=== PATIENT | male | born 1945 | race Caucasian/White ===

== ENCOUNTER 2017-08-01 08:46 | Inpatient (IN) | payer MEDICARE, OTHER ==
[2017-08-01] MEDS ORDERED: METHYLPREDNISOLONE PF 125MG/VIAL IVP ONE (08:55)
[2017-08-01] MEDS ORDERED: IPRATROPIUM/ALBUTEROL (0.5MG/3MG) NEB INH ONE (08:55)
--- NOTE | 2017-08-01 09:02 | Emergency Department Record ---
History of Present Illness - General Chief Complaint: Cough Stated Complaint: COUGH,FEVER,FLU LIKE Time Seen by Provider: 08/01/17 08:54 Source: Patient Mode of Arrival: Ambulatory Limitations: No limitations - History of Present Illness Initial Comments: 72 yo male presents with shortness of breath. The onset of cough, congestion, dyspnea with activity started last night. He is unaware of any fever. He has a productive cough. He has a history of asthma. He is a former smoker. He denies any chest pain or edema. He states he did have a Flu shot this year. NO other nausea, vomiting, diarrhea. No rash. PCP is at the [facility]. MD Complaint: Cough, Nasal congestion Onset/Timin -: Days(s) Severity: Moderate Quality: Other Consistency: Constant Improves With: Nothing Worsens With: Activity Context: Sick contacts Associated Symptoms: Cough, Nasal congestion Treatments Prior to Arrival: None - Related Data Home Medications Medication Instructions Recorded Confirmed Last Taken Albuterol Sulfate [Proventil Hfa] 1 - 2 puff INH .EVERY 4-6 HOURS PRN 08/01/17 08/01/17 08/01/17 Alprazolam [Xanax] 0.25 mg PO QHS 08/01/17 08/01/17 07/31/17 Aspirin [Aspirin EC] 81 mg PO DAILY 08/01/17 08/01/17 08/01/17 Atorvastatin Calcium 80 mg PO DAILY 08/01/17 08/01/17 07/31/17 Escitalopram Oxalate [Lexapro] 20 mg PO DAILY 08/01/17 08/01/17 08/01/17 Fish Oil/Dha/Epa [Fish Oil 1,200 1 each PO DAILY 08/01/17 08/01/17 08/01/17 mg Fish Oil] Ginkgo Biloba [place] Extract [Ginkgo 60 mg PO DAILY 08/01/17 08/01/17 08/01/17 Biloba] Mometasone Furoate [Asmanex] 220 mcg IH BID 08/01/17 08/01/17 08/01/17 Multivitamin [Daily Multiple 1 each PO DAILY 08/01/17 08/01/17 08/01/17 Vitamin] Prazosin HCl 1 mg PO QHS 08/01/17 08/01/17 07/31/17 Allergies Allergy/AdvReac Type Severity Reaction Status Date / Time No Known Drug Allergies Allergy Verified 08/01/17 08:58 Travel Screening - Travel/Exposure Within Last 30 Days Have you traveled within the last 30 days?: No Review of Systems Constitutional: Denies: Chills, Fever, Malaise, Weakness Eyes: Denies: Eye discharge ENT: Reports: Congestion. Denies: Throat pain Respiratory: Reports: Cough, Dyspnea, Wheezes. Denies: Hemoptysis, Stridor Cardiovascular: Denies: Chest pain, Palpitations, Syncope Endocrine: Denies: Fatigue Gastrointestinal: Denies: Abdominal pain, Diarrhea, Nausea, Vomiting Genitourinary: Denies: Dysuria, Frequency, Hematuria Musculoskeletal: Denies: Arthralgia, Back pain, Myalgia, Neck pain Skin: Denies: Bruising, Change in color, Rash Neurological: Denies: Confusion, Numbness, Weakness Psychiatric: Denies: Anxiety Hematological/Lymphatic: Denies: Blood Clots, Easy bleeding, Easy bruising, Swollen glands Physical Exam - General General Appearance: Alert, Oriented x3, Cooperative, No acute distress Limitations: No limitations - Head Head exam: Atraumatic, Normal inspection - Eye Eye exam: Normal appearance. negative: Conjunctival injection, Periorbital swelling - ENT ENT exam: Normal exam, Mucous membranes moist, Normal orophraynx Ear exam: Normal external inspection Nasal Exam: Discharge Mouth exam: Normal external inspection Teeth exam: Normal inspection Throat exam: Normal inspection - Neck Neck exam: Normal inspection, Full ROM. negative: Tenderness - Respiratory Respiratory exam: Accessory muscle use, Decreased breath sounds, Prolonged expiratory, Rhonchi, Wheezes. negative: Normal lung sounds bilaterally, Respiratory distress - Cardiovascular Cardiovascular Exam: Tachycardia Peripheral Pulses: 2+: Radial (R), Radial (L) - GI/Abdominal GI/Abdominal exam: Soft. negative: Rebound, Rigid, Tenderness - Rectal Rectal exam: Deferred - exam: Deferred - Extremities Extremities exam: Normal inspection, Full ROM, Normal capillary refill. negative: Tenderness - Back Back exam: Reports: Normal inspection, Full ROM. Denies: Muscle spasm, Rash noted, Tenderness - Neurological Neurological exam: Alert, Normal gait, Oriented X3 - Psychiatric Psychiatric exam: Normal affect, Normal mood - Skin Skin exam: Dry, Intact, Normal color, Warm Course Vital Signs 08/01/17 08:49 Pulse Rate 114 H Respiratory 28 H Rate Blood Pressure 134/94 Pulse Ox 90 L - Reevaluation(s) Reevaluation #1: The patient was 87% on room air initially with improvement to 90's with O2 08/01/17 09:01 08/01/17 10:19 The WBC count is 16 The CMP is negative The Influenza screen is negative The CXR was reviewed. He has a developing pneumonia on the right 08/01/17 11:11 EKG 11:02 Sinus rhythm with PVCs, intervals normal, axis left, LVH, ST NS changes. 08/01/17 11:32 Given the hypoxia, asthma, and right sided pneumonia the patient will be admitted for respiratory care and antibiotics Medical Decision Making - Lab Data Result diagrams: 08/01/17 09:14 08/01/17 09:14 Disposition Disposition: Admit Clinical Impression: Pneumonia Qualifiers: Pneumonia type: due to unspecified organism Laterality: right Lung location: middle lobe of lung Qualified Code(s): J18.1 - Lobar pneumonia, unspecified organism Disposition: Still a Patient at [facility] Decision to Admit: Admit from ER Decision to Admit Date: 08/01/17 Decision to Admit Time: 11:28 Condition: (1) Good Forms: Patient Portal Access Time of Disposition: 11:28 Quality - Quality Measures Quality Measures: N/A - Blood Pressure Screening Does Patient Have Any of the Following: No Blood Pressure Classification: Hypertensive Reading Systolic Measurement: 134 Diastolic Measurement: 94 Screening for High Blood Pressure: < Pre-Hypertensive BP, F/U Documented > [ [id number]] Pre-Hypertensive Follow-up Interventions: Referral to alternative/primary care provider.
[2017-08-01] MEDS ORDERED: ALBUTEROL SULFATE (0.083%) 2.5 MG/3 ML NEB INH ONE (09:25)
[2017-08-01 09:28] LABS: BLOOD UREA NITROGEN 10 mg/dL (8-23); CREATININE 0.7 mg/dL (0.7-1.2); EST GLOMERULAR FILTRATION RATE > 60 mL/min
[2017-08-01 09:29] LABS: TOTAL PROTEIN 7.5 g/dL (6.6-8.7)
[2017-08-01 09:31] LABS: GLUCOSE,RANDOM 137 mg/dL (74-109)
[2017-08-01 09:33] LABS: INFLUENZA A NEGATIVE (NEGATIVE); INFLUENZA B NEGATIVE (NEGATIVE)
[2017-08-01 09:34] LABS: ALB/GLOB RATIO 1.3 (1.1-1.8); ALBUMIN 4.3 g/dL (4.0-5.0); ALKALINE PHOSPHATASE 66 U/L (40-129); ALT/SGPT 22 U/L (<41); AST/SGOT 21 U/L (10.0-50.0)
[2017-08-01 09:50] LABS: HEMATOCRIT 43.9 % (42.0-52.0); MEAN CORPUSCULAR HEMOGLOBIN 29.4 pg (27-33); MEAN CORPUSCULAR HGB CONC 31.9 g/dl (32-36); MEAN PLATELET VOLUME 10.1 fl (7.4-10.4); PLATELET COUNT 281 K/uL (130-400); RED BLOOD COUNT 4.77 M/uL (4.40-5.70); RED CELL DISTRIBUTION WIDTH 13.6 % (11.5-14.5); WHITE BLOOD COUNT W/O DIFF 16.4 K/uL (4.2-12.2)
[2017-08-01] MEDS ORDERED: AZITHROMYCIN 500 MG TABLET PO ONE (10:20)
[2017-08-01] MEDS ORDERED: CEFTRIAXONE SODIUM 1 GM in 0.9 % SODIUM CHLORIDE 100ML 100 ML IVPB ONE (10:20)
[2017-08-01] MEDS ORDERED: ACETAMINOPHEN 500 MG TABLET PO ONE (11:12)
[2017-08-01 11:29] LABS: NTpro B-NATRIURETIC PEPTIDE 27.33 pg/mL (<125)
--- NOTE | 2017-08-01 12:36 | RADIOLOGY REPORT ---
EXAM: CHEST, TWO VIEWS HISTORY: DIFFICULTY IN BREATHING. TECHNIQUE: Frontal and lateral views of the chest were performed. Comparison: 09/03/10. FINDINGS: The heart size is normal. Small sliding type hiatal hernia. Right lower lobe infiltrate. No pleural effusion. The osseous structures are normal. IMPRESSION: RIGHT LOWER LOBE INFILTRATE. NO PLEURAL EFFUSION. JOB NUMBER: [id number] MTDD
[2017-08-01] MEDS ORDERED: CEFTRIAXONE SODIUM 1 GM in 0.9 % SODIUM CHLORIDE 100ML 100 ML IVPB SCH (14:08)
[2017-08-01] MEDS ORDERED: ACETAMINOPHEN 500 MG TABLET PO PRN (14:08)
[2017-08-01] MEDS ORDERED: ALBUTEROL SULFATE (0.083%) 2.5 MG/3 ML NEB INH PRN (14:08)
[2017-08-01] MEDS: IPRATROPIUM/ALBUTEROL (0.5MG/3MG) NEB INH SCH ×3 (14:39→22:58)
--- NOTE | 2017-08-01 15:58 | History & Physical ---
History of Present Illness - Date of Service Date of Service for History & Physical: 08/01/17 - History of Present Illness Admitting Diagnosis: Pneumonia and Asthma Exacerbation History of Present Illness: Tanner is a 72 year-old male who presented to the ED on 08/01 with shortness of breath. His history includes asthma, ex-smoker, depression, and hyperlipidemia. The onset of cough, congestion, and dyspnea with activity started last night. He is unaware of any fever, but states he did feel warmer than usual at home. He does have a productive cough. He denies chest pain, dizziness, nausea, vomiting, diarrhea, and rash. He states he did have a flu vaccine this year. Upon arrival to the ED, his oxygen saturation was 87% on room air, RR 24, HR 110, and BP 139/109. His CBC revealed a WBC of 16.4. His EKG was sinus rhythm with PVCs and LVH. His chest x-ray showed right lower lobe infiltrates consistent with pneumonia. Blood cultures were obtained and Rocephin 1g iv was administered. Based on his presentation of hypoxia and risk factors of asthma and right sided pneumonia, he was admitted for inpatient management. 08/01/17 1600: Tanner is sitting up in bed. He states that his shortness of breath is much improved. He has just received a duoneb treatment and he was provided instruction on deep breathing exercises to facilitate cough by RT. His vital signs are: T 98.8, HR 89, RR 18, 128/68 and 93% on 3L O2 nasal cannula. He is placed on continuous telemetry. Plan to monitor CBC with diff tomorrow morning, continue IV antibiotics (rocephin 1g qd and zithromax 500mg bid), solu-medrol 60mg iv qd, add mucinex 1200mg bid, albuterol neb and duonebs prn. PCP is at the [facility]. Travel Screening - Travel/Exposure Within Last 30 Days Have you traveled within the last 30 days?: No - Travel/Exposure Within Last Year Have you traveled outside the [place] in the last year?: No - Additonal Travel Details Have you been exposed to anyone with a communicable illness?: No - Travel Symptoms Symptom Screening: None Review of Systems Constitutional: Denies: Chills, Fever, Malaise, Weakness Eyes: Denies: Eye discharge ENT: Reports: Congestion. Denies: Throat pain Respiratory: Reports: Cough, Dyspnea, Wheezes. Denies: Hemoptysis, Stridor Cardiovascular: Denies: Chest pain, Palpitations, Syncope Endocrine: Denies: Fatigue Gastrointestinal: Denies: Abdominal pain, Diarrhea, Nausea, Vomiting Genitourinary: Denies: Dysuria, Frequency, Hematuria Musculoskeletal: Denies: Arthralgia, Back pain, Myalgia, Neck pain Skin: Denies: Bruising, Change in color, Rash Neurological: Denies: Confusion, Numbness, Weakness Psychiatric: Denies: Anxiety Hematological/Lymphatic: Denies: Blood Clots, Easy bleeding, Easy bruising, Swollen glands Past Medical History - SOCIAL HISTORY Smoking Status: Former smoker Alcohol Use: None Drug Use: None - RESPIRATORY Hx Respiratory Disorders: Yes Hx Asthma: Yes Hx Sleep Apnea: Yes Hx of CPAP: Yes - CARDIOVASCULAR Hx Cardio Disorders: Yes Comment:: high cholesterol - NEURO Hx Neuro Disorders: No - GI Hx GI Disorders: Yes Comment:: hernia - Hx Genitourinary Disorders: No - ENDOCRINE Hx Endocrine Disorders: No - MUSCULOSKELETAL Hx Musculoskeletal Disorders: Yes - PSYCH Hx Psych Problems: Yes Hx Depression: Yes Comment:: PTSD - HEMATOLOGY/ONCOLOGY Hx Hematology/Oncology Disorders: No Family Medical History Any Significant Family History?: Yes Hx Diabetes: Mother Hx Heart Disease: Father H&P Meds/Allergies - Allergies Allergies: Allergies Allergy/AdvReac Type Severity Reaction Status Date / Time No Known Drug Allergies Allergy Verified 08/01/17 08:58 - Home Medications Home Medications Medication Instructions Recorded Confirmed Last Taken Albuterol Sulfate [Proventil Hfa] 1 - 2 puff INH .EVERY 4-6 HOURS PRN 08/01/17 08/01/17 08/01/17 Alprazolam [Xanax] 0.25 mg PO QHS 08/01/17 08/01/17 07/31/17 Aspirin [Aspirin EC] 81 mg PO DAILY 08/01/17 08/01/17 08/01/17 Atorvastatin Calcium 80 mg PO DAILY 08/01/17 08/01/17 07/31/17 Escitalopram Oxalate [Lexapro] 20 mg PO DAILY 08/01/17 08/01/17 08/01/17 Fish Oil/Dha/Epa [Fish Oil 1,200 1 each PO DAILY 08/01/17 08/01/17 08/01/17 mg Fish Oil] Ginkgo Biloba [place] Extract [Ginkgo 60 mg PO DAILY 08/01/17 08/01/17 08/01/17 Biloba] Mometasone Furoate [Asmanex] 220 mcg IH BID 08/01/17 08/01/17 08/01/17 Multivitamin [Daily Multiple 1 each PO DAILY 08/01/17 08/01/17 08/01/17 Vitamin] Prazosin HCl 1 mg PO QHS 08/01/17 08/01/17 07/31/17 - Active Medications Active Medications: Current Medications Acetaminophen (Tylenol 500mg Tab) 500 mg PO Q6H PRN PRN Reason: PAIN/TEMP Albuterol Sulfate () 2.5 mg INH RESP.Q2H PRN PRN Reason: DIFFICULTY IN BREATHING Albuterol/Ipratropium (Duoneb) 3 ml INH RESP.Q4H.[facility] Last Admin: 08/01/17 14:39 Dose: 3 ml Alprazolam (Xanax) 0.25 mg PO QHS [facility] Aspirin (Ecotrin (Ec)) 81 mg PO DAILY [facility] Azithromycin (Zithromax) 500 mg PO DAILY [facility] Enoxaparin Sodium (Lovenox) 40 mg SC DAILY [facility] Ceftriaxone Sodium 1 gm/ (Sodium Chloride) 100 mls @ 100 mls/hr IVPB Q24H [facility] Stop: 08/06/17 14:09 Last Admin: 08/01/17 15:35 Dose: Not Given Methylprednisolone Sodium Succinate (Solu-Medrol) 60 mg IVP DAILY [facility] Non-Formulary Medication (Atorvastatin Calcium [Atorvastatin Calcium]) 80 mg PO DAILY [facility] Non-Formulary Medication (Escitalopram Oxalate [Lexapro]) 20 mg PO DAILY [facility] Non-Formulary Medication (Mometasone Furoate [Asmanex]) 220 mcg IH BID [facility] Non-Formulary Medication (Prazosin Hcl [Prazosin Hcl]) 1 mg PO QHS [facility] Physical Exam - Vital Signs Vital Signs: Vital Signs - Last 24 Hrs Pulse Pulse Resp BP Pulse Ox 08/01/17 14:46 91 H 19 93 L 08/01/17 14:43 93 H 19 97 08/01/17 14:03 92 H 20 120/68 95 - General General Appearance: Alert, Oriented x3, Cooperative, No acute distress Limitations: No limitations - Head Head exam: Atraumatic, Normal inspection - Eye Eye exam: Normal appearance. negative: Conjunctival injection, Periorbital swelling - ENT ENT exam: Normal exam, Mucous membranes moist, Normal orophraynx Ear exam: Normal external inspection Nasal Exam: Discharge Mouth exam: Normal external inspection Teeth exam: Normal inspection Throat exam: Normal inspection - Neck Neck exam: Normal inspection, Full ROM. negative: Tenderness - Respiratory Respiratory exam: Accessory muscle use, Decreased breath sounds, Prolonged expiratory, Rhonchi, Wheezes. negative: Normal lung sounds bilaterally, Respiratory distress - Cardiovascular Cardiovascular Exam: Tachycardia Peripheral Pulses: 2+: Radial (R), Radial (L) - GI/Abdominal GI/Abdominal exam: Soft. negative: Rebound, Rigid, Tenderness - Rectal Rectal exam: Deferred - exam: Deferred - Extremities Extremities exam: Normal inspection, Full ROM, Normal capillary refill. negative: Tenderness - Back Back exam: Reports: Normal inspection, Full ROM. Denies: Muscle spasm, Rash noted, Tenderness - Neurological Neurological exam: Alert, Normal gait, Oriented X3 - Psychiatric Psychiatric exam: Normal affect, Normal mood - Skin Skin exam: Dry, Intact, Normal color, Warm Results - Labs Result Diagrams: 08/01/17 09:14 08/01/17 09:14 - Imaging and Cardiology Chest x-ray Status: Report reviewed (Right lower lobe pneumonia) VTE H&P Assessment - Risk for VTE Risk for VTE: Yes Risk Level: Moderate Risk Assessment Date: 08/01/17 Risk Assessment Time: 15:55 VTE Orders Placed or Will Be Placed: Yes Plan - Inpatient Certification Inpatient Certification: Admit to inpatient care: Based on my medical assessment, after consideration of patient's risk factors (age, co-morbidities and patient presenting symptoms and acuity), I expect that this patient will remain in the hospital greater than or equal to two midnights and that the services needed warrant inpatient care because: Patient Risk Factors: [] Estimated length of stay: [] The patient may reasonably be expected to be discharged or transferred to a hospital within 96 hours after admission to [facility]. Services needed: [] Post hospital care (if known): [] I certify that my determination is in accordance with my understanding of Medicare requirements for reasonable and necessary inpatient services. - Detailed Diagnosis and Plan (1) Pneumonia Current Visit: Yes Status: Acute Qualifiers: Pneumonia type: due to unspecified organism Laterality: right Lung location: lower lobe of lung Qualified Code(s): J18.1 - Lobar pneumonia, unspecified organism Base Code: J18.9 - PNEUMONIA, UNSPECIFIED ORGANISM Comment: 08/01/17: WBC 16.4, oxygen saturation upon arrival to ED 87% on room air. CXR showed right lower lobe infiltrates consistent with pneumonia. Blood cultures obtained in ED. Continue rocephin 1g iv qd and zithromax 500mg po bid. (2) Asthma exacerbation Current Visit: Yes Status: Acute Qualifiers: Asthma severity: moderate Asthma persistence: persistent Qualified Code(s ): J45.41 - Moderate persistent asthma with (acute) exacerbation Base Code: J45.901 - UNSPECIFIED ASTHMA WITH (ACUTE) EXACERBATION Comment: - pt. was hypoxic upon arrival to ED, vital signs are now stable, 93% on 3L O2, T 98.8, 128/68, RR 18, HR 89. CXR showed RLL pneumonia. Rocephin 1g iv daily, zithromax 500mg po bid, albuterol and duonebs prn, and 60mg solu-medrol iv daily. Continue to monitor CBC with diff, VS q8h, telemetry. Activity as tolerated. (3) DVT prophylaxis Current Visit: Yes Status: Acute Base Code: [id number] - Comment: 08/01/17 1600- Pt. is moderate risk for DVT based on comorbities of age, decreased mobility. 40mg Lovenox SQ daily. (4) Full code status Current Visit: Yes Status: Acute Base Code: Z78.9 - OTHER SPECIFIED HEALTH STATUS Comment: 08/01/17 1600- Pt. is full code
[2017-08-01] MEDS ORDERED: MOMETASONE FUROATE 220 MCG IH SCH (22:00)
[2017-08-01] MEDS: ALPRAZOLAM 0.25 MG TABLET PO SCH (22:25)
[2017-08-01] MEDS: Non-Formulary MISC (Prazosin Hcl [Prazosin Hcl] 1 MG) PO SCH (22:25)
[2017-08-01] MEDS: GUAIFENESIN 1,200 MG TABLET PO SCH (22:25)
[2017-08-02] MEDS: IPRATROPIUM/ALBUTEROL (0.5MG/3MG) NEB INH SCH ×3 (05:40→13:37)
[2017-08-02 06:40] LABS: HEMATOCRIT 38.5 % (42.0-52.0); HEMOGLOBIN 12.9 gm/dl (14.0-18.0); LYMPH % 6.3 % (16-45); MEAN CORPUSCULAR HEMOGLOBIN 30.1 pg (27-33); MEAN CORPUSCULAR HGB CONC 33.5 g/dl (32-36); MEAN PLATELET VOLUME 10.3 fl (7.4-10.4); MONO % 5.1 % (0-9); PLATELET COUNT 289 K/uL (130-400); RED BLOOD COUNT 4.28 M/uL (4.40-5.70); RED CELL DISTRIBUTION WIDTH 13.8 % (11.5-14.5)
[2017-08-02] MEDS: Non-Formulary MISC (Atorvastatin Calcium [Atorvastatin Calcium] 40 MG) PO SCH (09:46)
[2017-08-02] MEDS: ENOXAPARIN 40 MG/0.4 ML SYR SC SCH (09:47)
[2017-08-02] MEDS: Non-Formulary MISC (Escitalopram Oxalate [Lexapro] 20 MG) PO SCH (09:47)
[2017-08-02] MEDS: GUAIFENESIN 1,200 MG TABLET PO SCH ×2 (09:47→21:27)
[2017-08-02] MEDS: PATIENT OWN MED: ASPIRIN 81 MG PO SCH (09:48)
[2017-08-02] MEDS: CEFTRIAXONE SODIUM 1 GM in 0.9 % SODIUM CHLORIDE 100ML 100 ML IVPB SCH (09:48)
[2017-08-02] MEDS: AZITHROMYCIN 500 MG TABLET PO SCH (09:49)
[2017-08-02] MEDS ORDERED: METHYLPREDNISOLONE PF 125MG/VIAL IVP SCH (10:00)
--- NOTE | 2017-08-02 15:59 | Physician Progress Note ---
Subjective - Date Date of Physician Progress Note: 08/02/17 - Subjective Subjective Comment: 08/02/17- Patient states he is feeling significantly better compared to yesterday morning. He says he feels like his breathing is back to normal. He says he had a good deal of coughing this morning upon waking that was dry, but none since. He denies any wheezing, chest congestion, fever, chills, decreased appetite. Objective - Vital Signs Vital Signs: Vital Signs - Last 24 Hrs Temp Pulse Pulse Resp BP Pulse Ox 08/02/17 14:00 97.9 F 90 18 129/66 93 L 08/02/17 13:40 87 17 97 08/02/17 13:39 85 17 93 L 08/02/17 09:21 83 17 97 08/02/17 09:00 94 H 17 08/02/17 06:00 97.9 F 94 H 20 128/74 92 L 08/02/17 05:40 81 16 89 L 08/01/17 22:58 68 16 96 08/01/17 21:56 98.9 F 105 H 20 143/70 92 L 08/01/17 18:08 97 H 17 97 - General General Appearance: Alert, Oriented x3, Cooperative, No acute distress Limitations: No limitations - Head Head exam: Atraumatic, Normal inspection - Eye Eye exam: Normal appearance. negative: Conjunctival injection, Periorbital swelling - ENT ENT exam: Normal exam, Mucous membranes moist, Normal orophraynx Ear exam: Normal external inspection Nasal Exam: Discharge Mouth exam: Normal external inspection Teeth exam: Normal inspection Throat exam: Normal inspection - Neck Neck exam: Normal inspection, Full ROM. negative: Tenderness - Respiratory Respiratory exam: Decreased breath sounds (bilateral bases). negative: Normal lung sounds bilaterally, Accessory muscle use, Respiratory distress, Rhonchi, Wheezes - Cardiovascular Cardiovascular Exam: Tachycardia Peripheral Pulses: 2+: Radial (R), Radial (L) - GI/Abdominal GI/Abdominal exam: Soft. negative: Rebound, Rigid, Tenderness - Rectal Rectal exam: Deferred - exam: Deferred - Extremities Extremities exam: Normal inspection, Full ROM, Normal capillary refill. negative: Tenderness - Back Back exam: Reports: Normal inspection, Full ROM. Denies: Muscle spasm, Rash noted, Tenderness - Neurological Neurological exam: Alert, Normal gait, Oriented X3 - Psychiatric Psychiatric exam: Normal affect, Normal mood - Skin Skin exam: Dry, Intact, Normal color, Warm Assessment and Plan - Assessment and Plan (1) Pneumonia Current Visit: Yes Status: Acute Qualifiers: Pneumonia type: due to unspecified organism Laterality: right Lung location: lower lobe of lung Qualified Code(s): J18.1 - Lobar pneumonia, unspecified organism Base Code: J18.9 - PNEUMONIA, UNSPECIFIED ORGANISM Comment: 08/02/17: WBC 16.4 up to 28 today following administration of IV steroids. Clinically, patient is improving with decreased ION, and oxygen saturation improved to . CXR showed right lower lobe infiltrate consistent with pneumonia. Blood cultures obtained in ED and are pending - Continue rocephin 1g iv q24H and zithromax 500mg po daily -duoneb q4H mucinex 1200mg po bid -vitals q8H -repeat labs qam (2) Asthma exacerbation Current Visit: Yes Status: Acute Qualifiers: Asthma severity: moderate Asthma persistence: persistent Qualified Code(s ): J45.41 - Moderate persistent asthma with (acute) exacerbation Base Code: J45.901 - UNSPECIFIED ASTHMA WITH (ACUTE) EXACERBATION Comment: - improving. O2 sat in Ed was 88% on RA up to 95% today. CXR showed RLL pneumonia. -continue solumedrol 60mg IV daily and will transition to oral tomorrow (3) DVT prophylaxis Current Visit: Yes Status: Acute Base Code: [id number] - Comment: 08/02/17 - Pt. is moderate risk for DVT based on comorbities of age, decreased mobility. 40mg Lovenox SQ daily. (4) Full code status Current Visit: Yes Status: Acute Base Code: Z78.9 - OTHER SPECIFIED HEALTH STATUS Comment: 08/02/17 1600- Pt. is full code Results - Labs Result Diagrams: 08/02/17 06:20 08/01/17 09:14 Labs Last 24 Hours: Laboratory Results - last 24 hr 08/02/17 06:20 WBC 28.0 H* RBC 4.28 L Hgb 12.9 L Hct 38.5 L MCV 90.0 MCH 30.1 MCHC 33.5 RDW 13.8 Plt Count 289 MPV 10.3 Neutrophils % 92.0 H Lymphocytes % 6.3 L Monocytes % 5.1 Eosinophils % 0.0 Basophils % 0.0 Lymphocytes 3.0 L Monocytes 5.0 DVT/PE Assessment - Risk for VTE Risk for VTE: No Risk Level: Moderate Risk Assessment Date: 08/01/17 Risk Assessment Time: 15:55 VTE Orders Placed or Will Be Placed: Yes - Active Medicaitons Current Medications: Current Medications Acetaminophen (Tylenol 500mg Tab) 500 mg PO Q6H PRN PRN Reason: PAIN/TEMP Last Admin: 08/02/17 10:34 Dose: 500 mg Albuterol Sulfate () 2.5 mg INH RESP.Q2H PRN PRN Reason: DIFFICULTY IN BREATHING Albuterol/Ipratropium (Duoneb) 3 ml INH [facility]P.Q4H.[facility] Last Admin: 08/02/17 13:37 Dose: 3 ml Alprazolam (Xanax) 0.25 mg PO QHS [facility] Last Admin: 08/01/17 22:25 Dose: 0.25 mg Azithromycin (Zithromax) 500 mg PO DAILY [facility] Last Admin: 08/02/17 09:49 Dose: 500 mg Enoxaparin Sodium (Lovenox) 40 mg SC DAILY [facility] Last Admin: 08/02/17 09:47 Dose: 40 mg Guaifenesin (Mucinex) 1,200 mg PO BID [facility] Last Admin: 08/02/17 09:47 Dose: 1,200 mg Ceftriaxone Sodium 1 gm/ (Sodium Chloride) 100 mls @ 200 mls/hr IVPB Q24H [facility] Stop: 08/07/17 10:01 Last Infusion: 08/02/17 10:30 Dose: Infused Methylprednisolone Sodium Succinate (Solu-Medrol) 60 mg IVP DAILY [facility] Last Admin: 08/02/17 09:49 Dose: 60 mg Non-Formulary Medication (Atorvastatin Calcium [Atorvastatin Calcium]) 40 mg PO DAILY [facility] Last Admin: 08/02/17 09:46 Dose: 40 mg Non-Formulary Medication (Escitalopram Oxalate [Lexapro]) 20 mg PO DAILY [facility] Last Admin: 08/02/17 09:47 Dose: 20 mg Non-Formulary Medication (Mometasone Furoate [Asmanex]) 220 mcg IH BID [facility] Non-Formulary Medication (Prazosin Hcl [Prazosin Hcl]) 1 mg PO QHS [facility] Last Admin: 08/01/17 22:25 Dose: 1 mg Patient Own Med: (Aspirin 81 Mg) 1 each PO DAILY [facility] Last Admin: 08/02/17 09:48 Dose: 1 each AMI Plan - Labs Result Diagrams: 08/02/17 06:20 08/01/17 09:14
[2017-08-02] MEDS ORDERED: IPRATROPIUM/ALBUTEROL (0.5MG/3MG) NEB INH PRN (16:04)
[2017-08-02] MEDS: Non-Formulary MISC (Prazosin Hcl [Prazosin Hcl] 1 MG) PO SCH (21:27)
[2017-08-02] MEDS: ALPRAZOLAM 0.25 MG TABLET PO SCH (21:27)
[2017-08-02] MEDS: MOMETASONE 220 MCG PUFF SCH (22:01)
[2017-08-03 06:58] LABS: HEMATOCRIT 38.4 % (42.0-52.0); HEMOGLOBIN 12.2 gm/dl (14.0-18.0); MEAN CELL VOLUME 92.5 fl (81-97); MEAN CORPUSCULAR HGB CONC 31.8 g/dl (32-36); MEAN PLATELET VOLUME 10.9 fl (7.4-10.4); PLATELET COUNT 304 K/uL (130-400); RED BLOOD COUNT 4.15 M/uL (4.40-5.70); RED CELL DISTRIBUTION WIDTH 14.2 % (11.5-14.5)
[2017-08-03 07:14] LABS: MEAN CORPUSCULAR HEMOGLOBIN 29.3 pg (27-33); WHITE BLOOD COUNT W/O DIFF 24.6 K/uL (4.2-12.2)
[2017-08-03 07:29] LABS: ALB/GLOB RATIO 1.3 (1.1-1.8); ALBUMIN 3.9 g/dL (4.0-5.0); ALKALINE PHOSPHATASE 62 U/L (40-129); ALT/SGPT 24 U/L (<41); AST/SGOT 23 U/L (10.0-50.0); BLOOD UREA NITROGEN 20 mg/dL (8-23); CREATININE 0.7 mg/dL (0.7-1.2); EST GLOMERULAR FILTRATION RATE > 60 mL/min; GLUCOSE,RANDOM 151 mg/dL (74-109); TOTAL PROTEIN 6.9 g/dL (6.6-8.7)
[2017-08-03] MEDS: MOMETASONE 220 MCG PUFF SCH (07:49)
--- NOTE | 2017-08-03 07:56 | Discharge Summary ---
Providers Discharge Summary Date: 08/03/17 Date of admission: 08/01/17 13:53 Expected Date of Discharge: 08/03/17 Attending physician: Gil Draper Physical Exam - Vital Signs Vital Signs: Vital Signs - Last 24 Hrs Temp Pulse Pulse Resp BP Pulse Ox 08/03/17 06:00 98.0 F 66 20 109/53 91 L 08/02/17 22:01 84 20 91 L 08/02/17 20:42 98.6 F 85 20 142/73 91 L 08/02/17 14:00 97.9 F 90 18 129/66 93 L 08/02/17 13:40 87 17 97 08/02/17 13:39 85 17 93 L 08/02/17 09:21 83 17 97 08/02/17 09:00 94 H 17 - General General Appearance: Alert, Oriented x3, Cooperative, No acute distress Limitations: No limitations - Head Head exam: Atraumatic, Normal inspection - Eye Eye exam: Normal appearance. negative: Conjunctival injection, Periorbital swelling - ENT ENT exam: Normal exam, Mucous membranes moist, Normal orophraynx Ear exam: Normal external inspection Nasal Exam: Discharge Mouth exam: Normal external inspection Teeth exam: Normal inspection Throat exam: Normal inspection - Neck Neck exam: Normal inspection, Full ROM. negative: Tenderness - Respiratory Respiratory exam: negative: Normal lung sounds bilaterally, Accessory muscle use , Decreased breath sounds, Prolonged expiratory, Respiratory distress, Rhonchi, Wheezes - Cardiovascular Cardiovascular Exam: Regular rate, Normal rhythm, Normal heart sounds Peripheral Pulses: 2+: Radial (R), Radial (L) - GI/Abdominal GI/Abdominal exam: Soft. negative: Rebound, Rigid, Tenderness - Rectal Rectal exam: Deferred - exam: Deferred - Extremities Extremities exam: Normal inspection, Full ROM, Normal capillary refill. negative: Tenderness - Back Back exam: Reports: Normal inspection, Full ROM. Denies: Muscle spasm, Rash noted, Tenderness - Neurological Neurological exam: Alert, Normal gait, Oriented X3 - Psychiatric Psychiatric exam: Normal affect, Normal mood - Skin Skin exam: Dry, Intact, Normal color, Warm Hospitalization - Hospitalization Admission Diagnosis: Pneumonia and Asthma Exacerbation - Problem List/Discharge Diagnosis (1) Pneumonia Current Visit: Yes Status: Acute Discharge Diagnosis: Pneumonia type: due to unspecified organism Laterality: right Lung location: lower lobe of lung Qualified Code(s): J18.1 - Lobar pneumonia, unspecified organism Base Code: J18.9 - PNEUMONIA, UNSPECIFIED ORGANISM Comment: 08/03/17: WBC trending back down from 28 to 24.6 today while receiving IV steroids. Clinically , patient continues to improve. He reports feeling signifcantly better than at admission. He did a home oxygen qualifier with respiratory therapy and did not qualify for home oxygen. He is supposed to be on vpap at night time but has not been using due to poor fitting mask. [facility] CXR showed right lower lobe infiltrate consistent with pneumonia. Blood cultures prelim read is no growth. Influenza was negative - transition to cefdinir 300mg po bid for total of 10 day course and azithromycin 250mg po daily for 2 more days -Start prednisone taper tomorrow -make follow up at the [facility] -may continue mucinex 1200mg po bid as needed for chest congestion -return to ED for any worsening of symptoms (2) Asthma exacerbation Current Visit: Yes Status: Acute Discharge Diagnosis: Asthma severity: moderate Asthma persistence: persistent Qualified Code(s ): J45.41 - Moderate persistent asthma with (acute) exacerbation Base Code: J45.901 - UNSPECIFIED ASTHMA WITH (ACUTE) EXACERBATION Comment: - improving. CXR showed RLL pneumonia. -transition to oral steroids with prednisone taper -continue using nebulizer q4H as needed at home -[facility] (3) DVT prophylaxis Current Visit: Yes Status: Acute Base Code: [id number] - Comment: 08/03/17 - Pt. is moderate risk for DVT based on comorbities of age, decreased mobility. 40mg Lovenox SQ daily. (4) Full code status Current Visit: Yes Status: Acute Base Code: Z78.9 - OTHER SPECIFIED HEALTH STATUS Comment: 08/03/17 1600- Pt. is full code - Hospitalization Course Disposition: Home, Self-Care Hospital Course: Tanner is a 72 year-old male who presented to the ED on 08/01 with shortness of breath. His history includes asthma, ex-smoker, depression, and hyperlipidemia. The onset of cough, congestion, and dyspnea with activity started last night. He is unaware of any fever, but states he did feel warmer than usual at home. He does have a productive cough. He denies chest pain, dizziness, nausea, vomiting, diarrhea, and rash. He states he did have a flu vaccine this year. Upon arrival to the ED, his oxygen saturation was 87% on room air, RR 24, HR 110, and BP 139/109. His CBC revealed a WBC of 16.4. His EKG was sinus rhythm with PVCs and LVH. His chest x-ray showed right lower lobe infiltrates consistent with pneumonia. Blood cultures were obtained and Rocephin 1g iv was administered. Based on his presentation of hypoxia and risk factors of asthma and right sided pneumonia, he was admitted for inpatient management. 08/01/17 1600: Tanner is sitting up in bed. He states that his shortness of breath is much improved. He has just received a duoneb treatment and he was provided instruction on deep breathing exercises to facilitate cough by RT. His vital signs are: T 98.8, HR 89, RR 18, 128/68 and 93% on 3L O2 nasal cannula. He is placed on continuous telemetry. Plan to monitor CBC with diff tomorrow morning, continue IV antibiotics (rocephin 1g qd and zithromax 500mg bid), solu-medrol 60mg iv qd, add mucinex 1200mg bid, albuterol neb and duonebs prn. 08/02/17- Patient states he is feeling significantly better compared to yesterday morning. He says he feels like his breathing is back to normal. He says he had a good deal of coughing this morning upon waking that was dry, but none since. He denies any wheezing, chest congestion, fever, chills, decreased appetite. 08/03/17- Patient states he is continuing to feel better. Says he is not short of breath at rest and only mildly so with exertion. He got up and walked with respiratory therapy and did not qualify for home oxygen. He says his cough has decreased as well and he is not getting as much sputum up with it. He denies fevers, chills, chest pain, heart palpitations. He is feeling ready to go home and will be calling [facility] on [facility] to schedule follow up and look in to getting new vpap mask. PCP is at the [facility]. Abnormal Labs: Abnormal Lab Results 08/02/17 08/03/17 08/03/17 Range/Units 06:20 06:05 06:05 WBC 28.0 H* 24.6 H* (4.2-12.2) K/uL RBC 4.28 L 4.15 L (4.40-5.70) M/uL Hgb 12.9 L 12.2 L (14.0-18.0) gm/dl Hct 38.5 L 38.4 L (42.0-52.0) % MCHC 31.8 L (32-36) g/dl MPV 10.9 H (7.4-10.4) fl Neutrophils % 92.0 H 92.0 H (47-80) % Lymphocytes % 6.3 L (16-45) % Lymphocytes 3.0 L 5.0 L (16-45) % Random Glucose 151 H (74-109) mg/dL Albumin 3.9 L (4.0-5.0) g/dL Condition at Discharge: (2) Stable Discharge Medications - Discharge Medications Prescriptions: Azithromycin 250 mg PO DAILY #2 tablet Cefdinir 300 mg PO BID #15 capsule Prednisone [Prednisone 10Mg] 10 mg PO ASDIR #30 tab Home Medications: Ambulatory Orders Albuterol Sulfate [Proventil Hfa] 1 - 2 puff INH .EVERY 4-6 HOURS PRN 08/01/17 [ Last Taken 08/01/17] Alprazolam [Xanax] 0.25 mg PO QHS 08/01/17 [Last Taken 07/31/17] Aspirin [Aspirin EC] 81 mg PO DAILY 08/01/17 [Last Taken 08/01/17] Atorvastatin Calcium 80 mg PO DAILY 08/01/17 [Last Taken 07/31/17] Escitalopram Oxalate [Lexapro] 20 mg PO DAILY 08/01/17 [Last Taken 08/01/17] Fish Oil/Dha/Epa [Fish Oil 1,200 mg Fish Oil] 1 each PO DAILY 08/01/17 [Last Taken 08/01/17] Ginkgo Biloba [place] Extract [Ginkgo Biloba] 60 mg PO DAILY 08/01/17 [Last Taken 08/01/17] Mometasone Furoate [Asmanex] 220 mcg IH BID 08/01/17 [Last Taken 08/01/17] Multivitamin [Daily Multiple Vitamin] 1 each PO DAILY 08/01/17 [Last Taken 08/01] Prazosin HCl 1 mg PO QHS 08/01/17 [Last Taken 07/31/17] Azithromycin 250 mg PO DAILY #2 tablet 08/02/17 [Last Taken Unknown] Cefdinir 300 mg PO BID #15 capsule 08/02/17 [Last Taken Unknown] Prednisone [Prednisone 10Mg] 10 mg PO ASDIR #30 tab 08/02/17 [Last Taken Unknown ] Discharge Plan - Discharge Instructions Activity at Discharge: Resume Usual Activities As Tolerated Diet at Discharge: Regular Diet Additional Instructions: [facility] Continue azithromycin 250mg by mouth once daily for 2 more days starting tomorrow Continue cefdinir 300mg by mouth twice daily starting tonight Stat prednisone taper tomorrow May use mucinex 1200mg by mouth twice daily as needed for chest congestion Use albuterol inhaler every 4 hours as needed for shortness of breath Please call with any questions or concerns Return to ED for any new or worsening symptoms Quality Measures - Quality Measures Quality Measures: Advance Directives, Documentation of Current Medications in Medical Record, Elder Maltreatment Screen and Follow-Up Plan, Screening for High Blood Pressure and F/U Documented - Current Medications Quality Measure: Measure #130: Documentation of Current Medications Documentation of Current Medications: <Current Medications Documented/Reviewed> [A3238] - Blood Pressure Screening Quality Measure: Screening for High Blood Pressure and Follow-Up Documented Does Patient Have Any of the Following: No Blood Pressure Classification: Pre-Hypertensive BP Reading Systolic Measurement: 128 Diastolic Measurement: 68 Screening for High Blood Pressure: < Pre-Hypertensive BP, F/U Documented > [ G8959] Pre-Hypertensive Follow-up Interventions: Referral to alternative/primary care provider. - Advance Directives Quality Measure: Measure #47: Care Plan Advance Directives Established: No Advance Directives Information Provided To Patient: No Advance Directives on File: No Living Will: No Power of Warehouse Receiving Clerk: No Advance Care Planning: <Care Plan/Decision Maker Not Decided; Discussed & Documented> [5932P] - Elder Abuse Suspicion Index Screening: Elder Abuse Suspicion Index Screening Rely on people for bathing, dressing, shopping, banking, etc: No Prevented from getting food, clothes, medication, etc: No Made to feel shamed or threatened by someone: No Forced to sign papers or use money against will: No Feel afraid, touched in ways not wanted or hurt physically: No Poor eye contact, withdrawn, malnourished, cuts or bruises: No Screening Result: Negative result EASI Reference Information: Jr HILTON, Edgar C, Nataly D, Jase Vidal.Development and validation of a tool to assist physicians identification of elder abuse: The Elder Abuse Suspicion Index (EASI ). Journal of Elder Abuse and Neglect, 2008; 20 (3): 276-300. - Elder Maltreatment Screen Quality Measures: Elder Maltreatment Screen and Follow-Up Plan Elder Maltreatment Screen: <Negative, No Follow-Up Plan Required> [G8734]
[2017-08-03] MEDS ORDERED: PREDNISONE 20 MG TAB PO SCH (08:00)
[2017-08-03] MEDS: Non-Formulary MISC (Escitalopram Oxalate [Lexapro] 20 MG) PO SCH (09:05)
[2017-08-03] MEDS: ENOXAPARIN 40 MG/0.4 ML SYR SC SCH (09:05)
[2017-08-03] MEDS: Non-Formulary MISC (Atorvastatin Calcium [Atorvastatin Calcium] 40 MG) PO SCH (09:05)
[2017-08-03] MEDS: PATIENT OWN MED: ASPIRIN 81 MG PO SCH (09:06)
[2017-08-03] MEDS: GUAIFENESIN 1,200 MG TABLET PO SCH (09:06)
[2017-08-03] MEDS: AZITHROMYCIN 500 MG TABLET PO SCH (09:06)
[2017-08-03] MEDS: CEFTRIAXONE SODIUM 1 GM in 0.9 % SODIUM CHLORIDE 100ML 100 ML IVPB SCH (09:10)
== END 2017-08-03 10:30 | disposition home or self-care (01) | DRG 194 ==
LOC: ER 08:46 → MEDSURG 13:53
PROVIDERS: ADMIT Internal Medicine; ATTEND Internal Medicine
DX: J18.1 Lobar pneumonia, unspecified organism (principal); J45.41 Moderate persistent asthma with (acute) exacerbation; E78.5 Hyperlipidemia, unspecified; Z87.891 Personal history of nicotine dependence
CPT/HCPCS: 71020; 80053; 83880; 84484; 85027; 87400; 93005; 93010; 94640; 94761; 96374; 99223; 99233; 99239; 99285; J1650; J2930; J7512; J7613

== ENCOUNTER 2018-07-22 11:01 | Emergency (ER) | payer MEDICARE, OTHER ==
--- NOTE | 2018-07-22 11:22 | Emergency Department Record ---
History of Present Illness - General Chief Complaint: Cough Stated Complaint: COUGHING/SORE THROAT Time Seen by Provider: 07/22/18 11:10 Mode of Arrival: Ambulatory - History of Present Illness Initial Comments: sore throat and cough with sputum and yellow brown. PMH asthma uses asmnec and albuterol ,Uses oxygen at night 2 liters per minutes. Patient quit smoking at 37 years old and smoked 1ppd for for 20 years Onset/Timin -: Days(s) Severity: Mild Severity scale (1-10): 3 Consistency: Intermittent - Related Data Home Medications Medication Instructions Recorded Confirmed Last Taken Mometasone Furoate [Asmanex Hfa] 13 gm IH BID 07/22/18 07/22/18 07/22/18 Previous Rx's Medication Instructions Recorded Azithromycin 250 mg PO DAILY #6 tablet 07/22/18 Prednisone [Prednisone 10Mg] 10 mg PO ASDIR #30 tab 07/22/18 Allergies Allergy/AdvReac Type Severity Reaction Status Date / Time No Known Drug Allergies Allergy Verified 07/22/18 11:03 Travel Screening - Travel/Exposure Within Last 30 Days Have you traveled within the last 30 days?: No - Travel/Exposure Within Last Year Have you traveled outside the [place] in the last year?: No - Additonal Travel Details Have you been exposed to anyone with a communicable illness?: No - Travel Symptoms Symptom Screening: None Review of Systems Reviewed: No additional complaints except as noted below Constitutional: Reports: As per HPI. Denies: Chills, Fever, Malaise, Night sweats, Weakness, Weight change Eyes: Reports: As per HPI. Denies: Eye discharge, Eye pain, Photophobia, Vision change ENT: Reports: As per HPI, Congestion, Throat pain. Denies: Dental pain, Ear pain, Epistaxis, Hearing loss Respiratory: Reports: As per HPI, Cough, Wheezes. Denies: Dyspnea, Hemoptysis, Stridor Cardiovascular: Reports: As per HPI. Denies: Arrhythmia, Chest pain, Dyspnea on exertion, Edema, Murmurs, Orthopnea, Palpitations, Paroxysmal nocturnal dyspnea, Rheumatic Fever, Syncope Endocrine: Reports: As per HPI. Denies: Fatigue, Heat or cold intolerance, Polydipsia, Polyuria Gastrointestinal: Reports: As per HPI. Denies: Abdominal pain, Constipation, Diarrhea, Hematemesis, Hematochezia, Melena, Nausea, Vomiting Genitourinary: Reports: As per HPI. Denies: Dysuria, Frequency, Hematuria, Incontinence, Retention, Testicular pain, Testicular mass, Urgency Musculoskeletal: Reports: As per HPI. Denies: Arthralgia, Back pain, Gout, Joint swelling, Myalgia, Neck pain Skin: Reports: As per HPI. Denies: Bruising, Change in color, Change in hair/ nails, Lesions, Pruritus, Rash Neurological: Reports: As per HPI. Denies: Abnormal gait, Confusion, Headache, Numbness, Paresthesias, Seizure, Tingling, Tremors, Vertigo, Weakness Psychiatric: Reports: As per HPI. Denies: Anxiety, Auditory hallucinations, Depression, Homicidal thoughts, Suicidal thoughts, Visual hallucinations Hematological/Lymphatic: Reports: As per HPI. Denies: Anemia, Blood Clots, Easy bleeding, Easy bruising, Swollen glands Past Medical History - SOCIAL HISTORY Smoking Status: Former smoker Alcohol Use: None Drug Use: None - RESPIRATORY Hx Respiratory Disorders: Yes Hx Asthma: Yes Hx Sleep Apnea: Yes Hx of CPAP: Yes - CARDIOVASCULAR Hx Cardio Disorders: Yes Comment:: high cholesterol - NEURO Hx Neuro Disorders: No - GI Hx GI Disorders: Yes Comment:: hernia - Hx Genitourinary Disorders: No - ENDOCRINE Hx Endocrine Disorders: No - MUSCULOSKELETAL Hx Musculoskeletal Disorders: Yes - PSYCH Hx Psych Problems: Yes Hx Depression: Yes Comment:: PTSD - HEMATOLOGY/ONCOLOGY Hx Hematology/Oncology Disorders: No Family Medical History Any Significant Family History?: Yes Hx Diabetes: Mother Hx Heart Disease: Father Physical Exam - General General Appearance: Alert, Oriented x3, Cooperative, No acute distress - Head Head exam: Normal inspection - Eye Eye exam: Normal appearance, PERRL Pupils: Normal accommodation - ENT ENT exam: Normal exam, Mucous membranes moist, Normal external ear exam, Normal orophraynx, TM's normal bilaterally Ear exam: Normal external inspection. negative: External canal tenderness Nasal Exam: Normal inspection. negative: Discharge, Sinus tenderness Mouth exam: Normal external inspection, Tongue normal Teeth exam: Normal inspection. negative: Dental caries Throat exam: Normal inspection. negative: Tonsillar erythema, Tonsillar exudate - Neck Neck exam: Normal inspection, Full ROM. negative: Tenderness - Respiratory Respiratory exam: Wheezes. negative: Respiratory distress - Cardiovascular Cardiovascular Exam: Regular rate, Normal rhythm, Normal heart sounds - GI/Abdominal GI/Abdominal exam: Soft, Normal bowel sounds. negative: Tenderness - Rectal Rectal exam: Deferred - exam: Deferred - Extremities Extremities exam: Normal inspection, Full ROM, Normal capillary refill. negative: Tenderness - Back Back exam: Reports: Normal inspection, Full ROM. Denies: Muscle spasm, Rash noted, Tenderness - Neurological Neurological exam: Alert, Normal gait, Oriented X3, Reflexes normal - Psychiatric Psychiatric exam: Normal affect, Normal mood - Skin Skin exam: Dry, Intact, Normal color, Warm Course Vital Signs 07/22/18 11:09 Temperature 98.4 F Pulse Rate 88 Respiratory 20 Rate Blood Pressure 149/74 Pulse Ox 94 L - Reevaluation(s) Reevaluation #1: feeling better 07/22/18 12:12 Medical Decision Making - Data Complexity MDM Data: Labs Ordered and/or Reviewed (wbc 11,500), X-Ray Ordered and/or Reviewed (chest xray chronc changes read by KARYNA) - Lab Data Result diagrams: 07/22/18 11:35 07/22/18 11:35 Disposition Clinical Impression: COPD (chronic obstructive pulmonary disease) with acute bronchitis Disposition: Home, Self-Care Condition: (1) Good Additional Instructions: [facility] days sooner if worse Prescriptions: Azithromycin 250 mg PO DAILY #6 tablet Prednisone [Prednisone 10Mg] 10 mg PO ASDIR #30 tab Forms: Patient Portal Access Time of Disposition: 12:40 Quality - Quality Measures Quality Measures: N/A - Blood Pressure Screening Does Patient Have Any of the Following: No Blood Pressure Classification: Hypertensive Reading Systolic Measurement: 149 Diastolic Measurement: 74 Screening for High Blood Pressure: < Pre-Hypertensive BP, F/U Documented > [ G8950] Pre-Hypertensive Follow-up Interventions: Referral to alternative/primary care provider.
[2018-07-22] MEDS ORDERED: 0.9 % SODIUM CHLORIDE 1000ML 1,000 ML IV PRN (11:23)
[2018-07-22] MEDS ORDERED: IPRATROPIUM/ALBUTEROL (0.5MG/3MG) NEB INH ONE (11:23)
[2018-07-22] MEDS ORDERED: METHYLPREDNISOLONE PF 125MG/VIAL IVP ONE (11:23)
[2018-07-22] MEDS ORDERED: CEFTRIAXONE SODIUM 1 GM in 0.9 % SODIUM CHLORIDE 100ML 100 ML IVPB ONE (11:30)
[2018-07-22 11:46] LABS: HEMATOCRIT 40.5 % (42.0-52.0); HEMOGLOBIN 12.6 gm/dl (14.0-18.0); RED BLOOD COUNT 4.37 M/uL (4.40-5.70); WHITE BLOOD COUNT W/O DIFF 11.5 K/uL (4.2-12.2)
[2018-07-22 11:47] LABS: BASO % 0.4 % (0-6); EOS % 3.5 % (0-6); GRAN % 67.4 % (47-80); LYMPH % 18.8 % (16-45); MEAN CELL VOLUME 92.7 fl (81-97); MEAN CORPUSCULAR HEMOGLOBIN 28.8 pg (27-33); MEAN CORPUSCULAR HGB CONC 31.1 g/dl (32-36); MEAN PLATELET VOLUME 9.8 fl (7.4-10.4); MONO % 9.9 % (0-9); PLATELET COUNT 319 K/uL (130-400); RED CELL DISTRIBUTION WIDTH 13.9 % (11.5-14.5)
[2018-07-22] MEDS ORDERED: AZITHROMYCIN 500 MG TABLET PO ONE (12:03)
[2018-07-22 12:14] LABS: BLOOD UREA NITROGEN 6 mg/dL (8-23); EST GLOMERULAR FILTRATION RATE > 60 mL/min
[2018-07-22 12:17] LABS: GLUCOSE,RANDOM 116 mg/dL (74-109)
--- NOTE | 2018-07-24 06:48 | RADIOLOGY REPORT ---
EXAM: CHEST, TWO VIEWS HISTORY: COUGH AND CONGESTION. FEVER FOR FIVE DAYS. TECHNIQUE: Two views of the chest were obtained. Comparison: Chest radiograph 08/01/17. FINDINGS: The cardiac silhouette is within normal size limits. Patchy right lower lobe opacities. No pleural effusion or visible pneumothorax. IMPRESSION: PATCHY RIGHT LOWER LOBE OPACITIES, SUSPICIOUS FOR PNEUMONIA. JOB NUMBER: [id number] MTDD
== END 2018-07-22 13:05 | disposition home or self-care (01) ==
LOC: ER 11:01
DX: J18.9 Pneumonia, unspecified organism (principal); J44.0 Chronic obstructive pulmonary disease with (acute) lower respiratory infection; J20.9 Acute bronchitis, unspecified; Z99.81 Dependence on supplemental oxygen; Z87.891 Personal history of nicotine dependence
CPT/HCPCS: 71046; 80048; 85025; 87880; 96365; 96375; 99284; J2930

== ENCOUNTER 2019-07-20 14:58 | Emergency (ER) | payer OTHER ==
--- NOTE | 2019-07-20 15:44 | Emergency Department Record ---
History of Present Illness - General Chief Complaint: Cough Stated Complaint: ION,CHEAST CONGESTION Time Seen by Provider: 07/20/19 15:25 Source: Patient Mode of Arrival: Ambulatory Limitations: No limitations - History of Present Illness Initial Comments: The patient is here for a one week hx of cough and congestion. He denies any ST, fever, chills, CP, SOB, or ION. The patient states his is home ill with the same issues and believes she got him sick. MD Complaint: Cough, Nasal congestion, Rhinorrhea Onset/Timin -: Week(s) - Related Data Previous Rx's Medication Instructions Recorded Doxycycline Monohydrate [Mondoxyne 100 mg PO BID 7 Days #14 capsule 07/20/19 Nl] Allergies Allergy/AdvReac Type Severity Reaction Status Date / Time No Known Drug Allergies Allergy Verified 07/20/19 15:15 Travel Screening - Travel/Exposure Within Last 30 Days Have you traveled within the last 30 days?: No - Travel/Exposure Within Last Year Have you traveled outside the [place] in the last year?: No - Additonal Travel Details Have you been exposed to anyone with a communicable illness?: No - Travel Symptoms Symptom Screening: None Review of Systems Constitutional: Reports: Malaise. Denies: Chills, Fever Eyes: Denies: Eye discharge ENT: Reports: Congestion Respiratory: Reports: Cough. Denies: Dyspnea, Hemoptysis, Stridor Cardiovascular: Denies: Chest pain Past Medical History - SOCIAL HISTORY Smoking Status: Former smoker Alcohol Use: None Drug Use: None - RESPIRATORY Hx Respiratory Disorders: Yes Hx Asthma: Yes Hx Sleep Apnea: Yes Hx of CPAP: Yes - CARDIOVASCULAR Hx Cardio Disorders: Yes Comment:: high cholesterol - NEURO Hx Neuro Disorders: No - GI Hx GI Disorders: Yes Comment:: hernia - Hx Genitourinary Disorders: No - ENDOCRINE Hx Endocrine Disorders: No - MUSCULOSKELETAL Hx Musculoskeletal Disorders: Yes - PSYCH Hx Psych Problems: Yes Hx Depression: Yes Comment:: PTSD - HEMATOLOGY/ONCOLOGY Hx Hematology/Oncology Disorders: No Family Medical History Any Significant Family History?: Yes Hx Diabetes: Mother Hx Heart Disease: Father Physical Exam - General General Appearance: Alert, Oriented x3, Cooperative, No acute distress - Head Head exam: Atraumatic, Normocephalic, Normal inspection - Eye Eye exam: Normal appearance, PERRL, EOMI - ENT Throat exam: Normal inspection. negative: Tonsillar erythema, Tonsillar exudate - Neck Neck exam: Normal inspection, Full ROM. negative: Tenderness - Respiratory Respiratory exam: Normal lung sounds bilaterally. negative: Accessory muscle use, Rales, Respiratory distress, Rhonchi, Stridor, Wheezes - Cardiovascular Cardiovascular Exam: Regular rate, Normal rhythm, Normal heart sounds. negative: Diastolic murmur - GI/Abdominal GI/Abdominal exam: Soft, Normal bowel sounds. negative: Tenderness - Extremities Extremities exam: Normal inspection, Full ROM, Normal capillary refill. negative: Tenderness - Neurological Neurological exam: Alert, Normal gait, Oriented X3. negative: Abnormal gait, Altered, Motor sensory deficit - Skin Skin exam: negative: Rash Course Vital Signs 07/20/19 15:20 Temperature 98 F Pulse Rate 99 H Respiratory 20 Rate Blood Pressure 154/84 Pulse Ox 95 - Reevaluation(s) Reevaluation #1: I did discuss the need for an oral Abx with the patient and the need to see his PCP if not better this week. 07/20/19 15:42 Disposition Disposition: Discharge Clinical Impression: URI, acute Disposition: Home, Self-Care Condition: (2) Stable Instructions: Cold Symptoms (ED) Additional Instructions: Please continue your regular medicines and take the Doxycycline as directed. Please see your family doctor for recheck if not better later this week and return to the ER for any worsening symptoms. Prescriptions: Doxycycline Monohydrate [Mondoxyne Nl] 100 mg PO BID 7 Days #14 capsule Forms: Patient Portal Access Time of Disposition: 15:44 Quality - Quality Measures Quality Measures: N/A - Blood Pressure Screening View Details: Yes Does Patient Have Any of the Following: No Blood Pressure Classification: Pre-Hypertensive BP Reading Systolic Measurement: 154 Diastolic Measurement: 84 Screening for High Blood Pressure: < Pre-Hypertensive BP, F/U Documented > [G8950] Pre-Hypertensive Follow-up Interventions: Referral to alternative/primary care provider.
== END 2019-07-20 16:00 | disposition home or self-care (01) ==
LOC: ER 14:58
DX: J06.9 Acute upper respiratory infection, unspecified (principal); R06.00 Dyspnea, unspecified; R05 Cough; Z87.891 Personal history of nicotine dependence
CPT/HCPCS: 99283